=== PATIENT | female | born 1985 | race Two or more races ===

== ENCOUNTER → 2018-05-08 15:41 | Outpatient (CLI) | payer OTHER, SELFPAY ==
[2018-05-08 18:06] LABS: Chlamydia Trachomatis by PCR Negative (Negative); Neisserai gonorrhoeae by PCR Negative (Negative); Probe Check PASS; Sample Adequacy Control PASS; Specimen Processing Control PASS
--- OUTSIDE RECORDS SUMMARY | 2018-07-13 05:36 | XMS RPT_ITS ---
:1985 Author Organization OHIP Care Team Providers Name Role Phone Steph Fernández Attending Unavailable RAFA FUENTES Admitting Unavailable RAFA FUENTES Attending Unavailable RAFA FUENTES Primary Care Unavailable INES THOMAS Consulting Unavailable PROVIDER, UNKNOWN Consulting Unavailable MARTHA, INES Admitting Unavailable MARTHA, INES Attending Unavailable SLIGO, INES Primary Care Unavailable SLIGO, INES Consulting Unavailable PROVIDER, UNKNOWN Consulting Unavailable MARTHA, INES Admitting Unavailable SLIGO, INES Attending Unavailable SLIGO, INES Primary Care Unavailable SLIGO, INES Consulting Unavailable PROVIDER, UNKNOWN Consulting Unavailable SILVERIO MORRISON Attending Unavailable INES THOMAS Referring Unavailable SILVERIO MORRISON Referring Unavailable PROBLEMS PROBLEMS DATE TYPE CONDITION / CODE ATTENDING STATUS SOURCE 05/08/2018 Unknown Z11.3 - Encounter Fred Fernández for screening for [facility] infections with a Hospital predominantly [facility] sexual mode of transmission / Z11.3(ICD-10) 12/24/2017 Admitting Other pulmonary INES THOMAS Diagnosis embolism without [facility] / I2699(ICD-10) Repository 12/24/2017 Principle Other pulmonary MARTHA, INES Active Adam Pomleathane Diagnosis embolism without [facility] / I2699(ICD-10) Repository 06/25/2017 Active Other pulmonary NA Active Lott embolism with acute Clinic [facility] pulmonale / [place] I26.09(ICD-10) Repository PROCEDURES PROCEDURES No Procedure Records FoundRESULTS RESULTS CT/NG [facility] BY PCR Collected: 05/08/2018 Status: F Source: [place] 12:05 PM [facility] REPOSITORY TYPE CODE TESTS RESULT OUT OF RANGE REFERENCE UNITS LAB L8200.2100 Negative Normal Chlam Negative Trac PCR LAB L8200.2200 Negative Normal NG by Negative PCR Performed By: #### L8200.1999 #### [facility] [address] [place], [address] FACTOR V LEIDEN Collected: 12/24/2017 Status: F Source: [place] COSBY MUTATION [QUEST] 5:00 PM [facility] REPOSITORY TYPE CODE TESTS RESULT OUT OF REFERENCE UNITS RANGE LAB FACTOR V LEIDEN MUTATION [QUEST](LOINC) FACTOR V LEIDEN MUTATION [QUEST] Result Comment: _FACTOR V LEIDEN MUTATION_ FACTOR V (LEIDEN) MUTATION ANALYSIS Reported: 12/29/2017 18:18 Status=F TEST RESULT FLAG RANGE UNITS RESULT see below 12/29/17.rfl.COMPLETE.AMRR .04253-5 FACTOR V LEIDEN (R506Q) MUTATION NOT DETECTED INTERPRETATION see below 12/29/17.rfl.COMPLETE.AMRR .80928-3 This individual is negative (normal) for the Factor V Leiden (R506Q) mutation in the Factor V gene. Increased risk of thrombophilia can be caused by a variety of genetic and non-genetic factors not screened for by this assay. REVIEWER see below 12/29/17.rfl.COMPLETE.AIXA Jenkins. Keshia Holland, Ph.D., [facility] Director, Molecular Genetics SUPPLEMENTAL INFORMATION The Factor V Leiden (R506Q) mutation [[id number]:c. 1601G>A (p.R534Q)] in the Factor V gene is one of the most common causes of inherited thrombophilia. This mutation causes resistance to degradation of activated Factor V protein by activated Protein C (APC). The Factor V Leiden (R506Q) mutation is detected by amplification of the selected region of Factor V gene by polymerase chain reaction (PCR) and fluorescent probe hybridization to the targeted region, followed by melting curve analysis with a real time PCR system. Although rare, false positive or false negative results may occur. All results should be interpreted in context of clinical findings, relevant history, and other laboratory data. Health care providers, please contact your local [employer] genetic counselor or call [facility] [employer] ([phone]) for assistance with interpretation of these results. This test was developed and its analytical performance characteristics have been determined by [employer] [place], [place]. It has not been cleared or approved by the U.S. Food and Drug Administration. This assay has been validated pursuant to the CLIA regulations and is used for clinical purposes. Test Performed by [facility], [employer] [place], [address] [place] [address] Alex Whitt M.D., Ph.D., Director of Laboratories , CLIA [id number] Performed By: #### [id number] #### [facility],[address] [place] [address] THIN PREP (QU) HPV Collected: 12/24/2017 Status: F Source: [facility] DNA-HIGH RISK 10:57 AM [facility] REPOSITORY TYPE CODE TESTS RESULT OUT OF RANGE REFERENCE UNITS LAB THIN PREP (QU) HPV DNA-HIGH RISK(LOINC) THIN PREP (QU) HPV DNA-HIGH RISK Result Comment: _THIN PREP (QU) HPV DNA HIGH RISK_ THINPREP(R) PAP WITH HPV MRNA E6/E7 Reported: 01/01/2018 10:08 Status=F TEST RESULT FLAG RANGE UNITS THINPREP(R) PAP see below 01/01/18.1019.rfl.COMPLETE.[facility] .98328[facility] TESTS: TP W/HR HPV mRNA E6/E7 (1) CLINICAL HISTORY/INFORMATION: LMP DATE: N/P SOURCE: Cervix COMMENTS: PREVIOUS CYTO VALUES: Y NEGATIVE MENSTRUAL STATUS: NOT PROVIDED 1. SPECIMEN ADEQUACY: Satisfactory for Evaluation No endocervical/transformation zone component identified FINAL INTERPRETATION NEGATIVE FOR INTRAEPITHELIAL LESION OR MALIGNANCY COMMENTS: Fungal organisms present morphologically consistent with Ana species LMP not provided Screener ELECTRONIC SIGNATURE ON FILE JBM CT(ASCP) JBM CT(ASCP) The Pap is a screening test for cervical cancer. It is not a diagnostic test and is subject to false negative and false positive results. It is most reliable when a satisfactory sample, regularly obtained, is submitted with relevant clinical findings and history, and when the Pap result is evaluated along with historic and current clinical information. HPV MRNA E6/E7 Not Detected NOT DETECTED 01/01/18.1019.formerly [facility].AMRR .89235-7 This test was performed using the APTIMA(R) HPV Assay ([employer] This assay detects E6/E7 viral messenger RNA (mRNA) from 14 high-risk HPV types (16,18,31,33,35,39,45,51, 52,56,58,59,66,68). For additional information please refer to: http://education.[employer]/faq/MIF766i6 (This link is being provided for informational/ educational purposes only.) The analytical performance characteristics of this assay have been determined by [employer] [place], [place]. The modifications have not been cleared or approved by the FDA. This assay has been validated pursuant to the CLIA regulations and is used for clinical purposes. Test Performed by [facility], [facility], [address] [place] [address] Alex Whitt M.D., Ph.D., Director of Laboratories , CLIA [id number] Performed By: #### [id number] #### [place] [address] [address] CHEST (PE PROTOCOL) Observed: 08/21/2017 Status: F Source: [facility] 7:57 AM [place] [address] Patient: RESHMA BOJORQUEZ Phone#: : 1985 Age: 32 Gender: F Pt. Type: Out Account: [id number] Location: [facility] Ordering: [facility] Exam Date: 08/21/2017/7:34 Family Phys: Charge Code: [id number] Physician: Oneida Order #: [id number] DLP Dose#: PROCEDURE: CT CHEST WITH CONTRAST FOR PE COMPARISON: [facility], CT, CHEST PE W CON, 02/28/2017, 12:32. INDICATIONS: Pulmonary emboli TECHNIQUE: After obtaining the patient's consent, CT images were obtained with non-ionic intravenous contrast material. Multi-planar images were created to optimize visualization of vascular anatomy with MPR/MIPS and 3D imaging. All CT scans at this facility use dose modulation, iterative reconstruction, and/or weight based dosing when appropriate to reduce radiation dose to as low as reasonably achievable. IV CONTRAST: Omnipaque 350,62ml TOTAL DOSE: 3.20 CTDIvol(mGy) FINDINGS: VASCULATURE: Normal. No visible pulmonary arterial thrombus or attenuation. AORTA: Normal. No aneurysm or dissection. LUNGS: Normal. No visible pulmonary disease. JASON: Normal. No mass or adenopathy. MEDIASTINUM: Normal. No mass or adenopathy. CARDIAC: Normal. No enlargement, pericardial thickening, or significant calcification. PLEURA: Normal. No mass or effusion. CHEST WALL: Normal. No mass or axillary adenopathy. LIMITED ABDOMEN: Normal. Limited images of the upper abdomen are unremarkable. BONES: Normal. No bony lesion or fracture. OTHER: Negative. CONCLUSION: No acute disease. There has been resolution of previously identified bilateral lower lobe pulmonary artery emboli. [place] [id number] Patient: RESHMA BOJORQUEZ Phone#: : 1985 Age: 32 Gender: F Pt. Type: Out Account: [id number] Location: [facility] Ordering: [facility] Exam Date: 08/21/2017/7:34 Family Phys: Charge Code: [id number] Physician: Oneida Order #: [id number] DLP Dose#: Dictated by: Heather Gresham MD on 08/21/2017 at 8:27 Approved by: Heather Gresham MD on 08/21/2017 at 8:27 CT ABDOMEN/PELVIS W Observed: 07/28/2017 Status: F Source: [facility] 9:11 AM [facility] [address] [place] [address] Patient: RESHMA BOJORQUEZ Phone#: : 1985 Age: 32 Gender: F Pt. Type: Out Account: [id number] Location: 052 Ordering: [facility] Exam Date: 07/27/2017/10:32 Family Phys: Charge Code: [id number] Physician: Oneida Order #: [id number] DLP Dose#: PROCEDURE: CT ABDOMEN/PELVIS WITH CONTRAST COMPARISON: [facility], CT, ABDOMEN/PELVIS W CON, 10/11/2011, 17:12. INDICATIONS: Abdominal pain TECHNIQUE: After obtaining the patient's consent, CT images were created with non-ionic intravenous contrast material. All CT scans at this facility use dose modulation, iterative reconstruction, and/or weight based dosing when appropriate to reduce radiation dose to as low as reasonably achievable. IV CONTRAST: Omnipaque 350,80ml TOTAL DOSE: 11.2 CTDIvol(mGy) FINDINGS: LIVER: Normal. No enlargement, atrophy, abnormal density, or significant focal lesion. BILIARY: Normal. No visible dilatation or calcification. PANCREAS: Normal. No lesion, fluid collection, ductal dilatation, or atrophy. SPLEEN: Normal. No enlargement or focal lesion. KIDNEYS: Normal. No mass, obstruction, or calcification. ADRENALS: Normal. No mass or enlargement. AORTA/VASCULAR: Normal. No aneurysm or dissection. RETROPERITONEUM: Normal. No mass or adenopathy. BOWEL/MESENTERY: No bowel obstruction or dilatation. Appendix is unremarkable containing air. ABDOMINAL WALL: Normal. No mass or hernia. URINARY BLADDER: Normal. No visible focal wall thickening, lesion, or calculus. PELVIC NODES: Normal. No adenopathy. Continued Report - Page 2 of 2 Patient: RESHMA BOJORQUEZ Phone#: : 1985 Age: 32 Gender: F Pt. Type: Out Account: [id number] Location: 052 Ordering: [facility] Exam Date: 07/27/2017/10:32 Family Phys: Charge Code: [id number] Physician: Oneida Order #: [id number] DLP Dose#: PELVIC ORGANS: Uterus is present. There is a corpus luteal cyst in the left ovary. There is a small amount of free fluid in the pelvis, suggesting a recently ruptured cyst versus physiologic fluid. Follicles are present in both ovaries. BONES: Normal. No bony lesion or fracture. LUNG BASES: Normal. No visible pulmonary or pleural disease. OTHER: Negative. CONCLUSION: 1. No appreciable acute intra-abdominal or pelvic abnormality. 2. Small free fluid in the pelvis may be physiologic versus due to recently ruptured cyst. Dictated by: Reena Clark MD on 07/27/2017 at 16:54 Approved by: Reena Clark MD on 07/27/2017 at 16:54 CBC Collected: 07/27/2017 Status: F Source: [place] [place] 10:20 AM [facility] REPOSITORY TYPE CODE TESTS RESULT OUT OF RANGE REFERENCE UNITS LAB CBC(LOINC) CBC Result Comment: CBC-COMPLETE BLOOD COUNT LAB WBC(LOINC) 4.5 - 10.8 x 10EE3/UL WBC 7.3 LAB RBC(LOINC) 4.10 - x 10EE6/UL 5.30 RBC 4.63 LAB HEMOGLOBIN(LOINC) 12.0 - g/dl 16.0 HEMOGLOBIN 14.3 LAB HEMATOCRIT(LOINC) 34.0 - % 46.0 HEMATOCRIT 42.3 LAB MCV(LOINC) 80 - 99 fl MCV 91 LAB MCH(LOINC) 27 - 33 pg MCH 31 LAB MCHC(LOINC) 32 - 36 X10 3 MCHC 34 LAB RDW/CV(LOINC) 12.0 - % 15.6 RDW/CV 13.5 LAB PLATELET(LOINC) 150 - 450 x10EE3/UL PLATELET 265 LAB MPV(LOINC) 6.6 - 10.5 fl MPV 7.7 Result Comment: AUTOMATED DIFFERENTIAL LAB NEUT %(LOINC) 46.0 - 76.0 % NEUT % 56.9 LAB LYMPH %(LOINC) 20.0 - 45.0 % LYMPH % 30.5 LAB MONOS %(LOINC) 0.0 - 10.0 % MONOS % 6.4 LAB EO %(LOINC) 0.0 - 7.0 % EO % 4.8 LAB BASO %(LOINC) 0.0 - 2.0 % BASO % 1.4 LAB Lymph #(LOINC) 0.80 - 2.80 x10EE3/U L Lymph # 2.20 LAB Neut #(LOINC) 1.50 - 7.10 x10EE3/U L Neut # 4.20 LAB [place] #(LOINC) 0.20 - 1.00 x10EE3/U L [place] # 0.50 LAB EO #(LOINC) 0.00 - 0.50 x10EE3/U L EO # 0.40 LAB Baso #(LOINC) 0.00 - 0.10 x10EE3/U L Baso # 0.10 LAB MANUAL DIFF([facility]) MANUAL DIFF N/A LAB MORPHOLOGY([facility] ) MORPHOLOGY N/A Result Comment: {CD] Performed By: #### [id number] #### [facility],[address] [place], [place] [id number] [place] [address] CBC AND DIFF Collected: 06/25/2017 Status: F Source: [place] 11:09 AM [facility] REPOSITORY TYPE CODE TESTS RESULT OUT OF REFERENCE UNITS RANGE LAB WWBC 3.70-11.00 k/uL [place] WBC 8.02 LAB WRBC 3.90-5.20 m/uL [place] RBC 4.57 LAB WHGB 11.5-15.5 g/dL [place] Hemoglobin 14.1 LAB WHCT 36.0-46.0 % Gaye Hematocrit 42.9 LAB WMCV 80.0-100.0 fL [place] MCV 93.9 LAB WMCH 26.0-34.0 pg [place] MCH 30.9 LAB WMCHC 30.5-36.0 g/dL [place] MCHC 32.9 LAB WRDW 11.5-15.0 % [place] RDW 13.3 LAB WPLT 150-400 k/uL [place] Platelet Cnt 258 LAB WMPV 9.0-12.7 fL Low [place] MPV 8.8 Result Comment: Test performed at: [address] [place] [address]. LAB WNEUT % [place] Neut% 49.0 LAB WLYMP % [place] Lymp% 36.0 LAB WMONOC % Gaye [place]% 8.4 LAB WEOS % [place] Eos% 5.9 LAB WBASO % [place] Baso% 0.7 LAB WANEUT 1.45-7.5 k/uL 0 [place] Abs Neut 3.93 LAB WALYMP 1.00-4.0 k/uL 0 [place] Abs Lymp 2.89 LAB WAMONO <0.87 k/uL [place] Abs [place] 0.67 LAB WAEOS <0.46 k/uL High [place] Abs Eos 0.47 LAB WABASO <0.11 k/uL [place] Abs Baso 0.06 D DIMER Collected: 06/25/2017 Status: F Source: [place] 11:09 AM [facility] REPOSITORY TYPE CODE TESTS RESULT OUT OF REFERENCE UNITS RANGE LAB DDMER <500 ng/mL FEU D dimer <190 Result Comment: The D-dimer assay can be used to exclude pulmonary embolism (PE) and deep vein thrombosis (DVT) in conjunction with a low pre-test probability. For patients with a suspected DVT, a D-dimer level below 500 ng/mL FEU has a negative predictive value of 99.2%, a sensitivity of 98.9%, and a specificity of 36.1%. For patients with a suspected PE, a D -dimer level below 500 ng/mL FEU has a negative predictive value of 99.1%, a sensitivity of 97.8%, and a specificity of 41.7%. Performed By: #### DDMER #### [facility] [address] [place], [place] [address] PROGRESS Observed: 06/25/2017 Status: COMPLETED Source: [place] 10:50 AM [facility] REPOSITORY HNO ID: [id number] Author: Silverio Morrison Service: (none) Author Type: Physician Type: Progress Notes Filed: 06/26/2017 10:06 AM Note Text: Hematology and Medical Oncology PATIENT NAME: Reshma Bojorquez. CLINIC NO: [id number]. ATTENDING PHYSICIAN: Silverio Morrison MD. DATE OF SERVICE:06/25/2017. 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 My final recommendations will be communicated back to the requesting physician by way of shared Medical record or letter to requesting physician via US mail. 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 Patient has mild shortness of breath but no calf swelling or tenderness. She has been on control pill for years. she also has a strong family history of DVT and pulmonary emboli with multiple relatives from her father. The CT scan of chest on 02/28/2017 showed bilateral lower lobe pulmonary emboli with in the tissue vessel. There were no other abnormality of her heart along. Patient has completed 4 months of Xarelto with no bleeding complications. She denied chest pain, shortness of breath, leg swelling or tenderness. She has stopped control pills since last year. Patient has no unusual weight loss, change in bowel habits, no atypical or nonhealing skin ulcers/lesions. She denies any swelling or mass on her breasts. Patient does not smoke tobacco or drink alcohol. No history of drug use or addiction. No fever, chills or night sweats. She also has normal menses. She is here today to discuss whether she needs additional testing for hypercoagulability before stopping Xarelto. MEDICATIONS: Current Outpatient Prescriptions: rivaroxaban (XARELTO) 20 mg tablet Take 20 mg by mouth once daily. MULTIVITAMIN (MULTIPLE VITAMIN ORAL) Take 1 tablet by mouth once daily. No current facility-administered medications for this visit. . ALLERGIES:ALLERGIES No Known Allergies. PAST MEDICAL HISTORY:No past medical history on file.. PAST SURGICAL HISTORY: PAST SURGICAL HISTORY Procedure Laterality Date - KNEE ARTHROSCOP MENISCUS REPAIR MED/LAT Left . FAMILY HISTORY: FAMILY HISTORY Problem Relation Age of Onset - Other [OTHER] Mother thyroid disease - Skin Cancer Paternal Grandmother - Diabetes Paternal Grandmother - Heart disease Paternal Grandmother - Other [OTHER] Paternal Grandmother PE - Skin Cancer Paternal Grandfather . SOCIAL HISTORY:Social History Marital status: Unknown Spouse name: Years of education: Number of children: Social History Main Topics Smoking status: Never Smoker Smokeless status: Never Used Alcohol use: Yes Comment: occassionally Drug use: No REVIEW OF SYSTEMS: CONSTITUTIONAL: No fevers, chills, nightsweats, unintended weight loss HEENT: Denies frequent or severe heaches, nasal congestion/sinus symptoms, problematic allergy problems. EYES: No diplopia or blurry vision. CARDIOVASCULAR: No chest pain, dyspnea, palpitations, orthopnea, PND, ankle edema. PULM: No dyspnea, unexplained cough. GI: No dysphagia/odynophagia, problematic reflux, constipation, diarrhea, changes in stool habits, hematochezia, melena. : No new urinary complaints, including dysuria, gross hematuria or pyuria. NEURO: No new balance problems, peripheral weakness/paresthesias or numbness of concern. MUSC-SKEL: No new joint pain, swelling, or erythema. PSY: No concerns regarding depression, anxiety or panic. INTEGUMENTARY: No new skin changes (rash, new or changing mole, new growth) PHYSICAL EXAMINATION: 32-year-old well-nourished well-developed female in no distress BP 120/75 Pulse 78 Temp 98.4 Ht 5' 1.5[verified by Jeimy De Los Santos RN[ (1.56m) Wt 136 lb (61.7kg) BMI 25.28 kg/(m2). oxygen saturation 100% HEENT: Head is normocephalic, atraumatic. Sclerae white, conjunctivae pink. PEERL. EOMs are intact. Oropharynx is benign. LYMPHATICS: There is no palpable adenopathy in the neck, supraclavicular region, axillae, or groin. LUNGS: Lungs are clear to percussion and auscultation. HEART: Heart is normal without murmurs, gallops, or rubs. ABDOMEN: Soft and nontender without organomegaly. No masses can be palpated. EXTREMITIES: Are without edema. swelling or tenderness. NEUROLOGIC: Exam is physiologic LABORATORY DATA: Component Latest Ref Rng AND Units 06/25/2017 WBC, Gaye 3.70 - 11.00 k/uL 8.02 RBC, [place] 3.90 - 5.20 m/uL 4.57 Hemoglobin, [place] 11.5 - 15.5 g/dL 14.1 Hematocrit, Gaye 36.0 - 46.0 % 42.9 MCV, [place] 80.0 - 100.0 fL 93.9 MCH, Gaye 26.0 - 34.0 pg 30.9 MCHC, [place] 30.5 - 36.0 g/dL 32.9 RDW, [place] 11.5 - 15.0 % 13.3 Platelet Cnt, [place] 150 - 400 k/uL 258 MPV, [place] 9.0 - 12.7 fL 8.8 (L) Neut%, Gaye % 49.0 Lymp%, [place] % 36.0 [place]%, Gaye % 8.4 Eos%, [place] % 5.9 Baso%, [place] % 0.7 Abs Neut, [place] 1.45 - 7.50 k/uL 3.93 Abs Lymp, Gaye 1.00 - 4.00 k/uL 2.89 Abs [place], Gaye <0.87 k/uL 0.67 Abs Eos, [place] <0.46 k/uL 0.47 (H) Abs Baso, Gaye <0.11 k/uL 0.06 Component Latest Ref Rng AND Units 06/25/2017 d Dimer <500 ng/mL FEU <190 ASSESSMENT: 32-year-old female with 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 Family history of thromboembolism. All symptoms of pulmonary emboli has resolved after 4 months of Xarelto PLAN: - repeat CBC and d-dimer today. If her results are normal, then stop Xarelto - control pills are now contraindicated. - She will need to be on LMWH in the future once she become AND and throughout . 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 - We also discussed indication for hypercoagulable panel at this time. Since this is her first episode, most common reason for thromboembolism with family history could be a factor V Leiden or prothrombin mutation. The present of these mutations will not change her treatment. She does not need long-term anticoagulation therapy for thromboembolism related to control pill. Silverio Morrison MD. ELECTRONICALLY SIGNED CNOVSP Observed: 06/25/2017 Status: COMPLETED Source: [place] 10:10 AM [facility] REPOSITORY Visit (SP) Office (BILL) RESHMA BOJORQUEZ ([id number]) 1985 F Date Time Provider Department 06/25/17 10:10 AM SILVERIO MORRISON During your visit today, we recorded the following information about you: Temperature Pulse Blood pressure Weight 98.4 degrees 78/minute 120/75 61.7 kg Height 1.562 m Latricia Blancas LPN, CRYSTAL 06/25/2017 10:44 AM Signed New pt, discuss : HX: bilateral PE CRYSTAL Valerio MD 06/25/2017 10:46 AM Signed Stop Xarelto if labs ANDamp; d dimer are normal. No control pills ANDamp; will need LMWH if in the future. Silverio Morrison MD 06/26/2017 10:06 AM Signed Hematology and Medical Oncology PATIENT NAME: Reshma Bojorquez. CLINIC NO: [id number]. ATTENDING PHYSICIAN: Silverio Morrison MD. DATE OF SERVICE:06/25/2017. 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 My final recommendations will be communicated back to the requesting physician by way of shared Medical record or letter to requesting physician via US mail. 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 Patient has mild shortness of breath but no calf swelling or tenderness. She has been on control pill for years. she also has a strong family history of DVT and pulmonary emboli with multiple relatives from her father. The CT scan of chest on 02/28/2017 showed bilateral lower lobe pulmonary emboli with in the tissue vessel. There were no other abnormality of her heart along. Patient has completed 4 months of Xarelto with no bleeding complications. She denied chest pain, shortness of breath, leg swelling or tenderness. She has stopped control pills since last year. Patient has no unusual weight loss, change in bowel habits, no atypical or nonhealing skin ulcers/lesions. She denies any swelling or mass on her breasts. Patient does not smoke tobacco or drink alcohol. No history of drug use or addiction. No fever, chills or night sweats. She also has normal menses. She is here today to discuss whether she needs additional testing for hypercoagulability before stopping Xarelto. MEDICATIONS: Current Outpatient Prescriptions: rivaroxaban (XARELTO) 20 mg tablet Take 20 mg by mouth once daily. MULTIVITAMIN (MULTIPLE VITAMIN ORAL) Take 1 tablet by mouth once daily. No current facility-administered medications for this visit. . ALLERGIES:ALLERGIES No Known Allergies. PAST MEDICAL HISTORY:No past medical history on file.. PAST SURGICAL HISTORY: PAST SURGICAL HISTORY Procedure Laterality Date - KNEE ARTHROSCOP MENISCUS REPAIR MED/LAT Left . FAMILY HISTORY: FAMILY HISTORY Problem Relation Age of Onset - Other [OTHER] Mother thyroid disease - Skin Cancer Paternal Grandmother - Diabetes Paternal Grandmother - Heart disease Paternal Grandmother - Other [OTHER] Paternal Grandmother PE - Skin Cancer Paternal Grandfather . SOCIAL HISTORY:Social History Marital status: Unknown Spouse name: Years of education: Number of children: Social History Main Topics Smoking status: Never Smoker Smokeless status: Never Used Alcohol use: Yes Comment: occassionally Drug use: No REVIEW OF SYSTEMS: CONSTITUTIONAL: No fevers, chills, nightsweats, unintended weight loss HEENT: Denies frequent or severe heaches, nasal congestion/sinus symptoms, problematic allergy problems. EYES: No diplopia or blurry vision. CARDIOVASCULAR: No chest pain, dyspnea, palpitations, orthopnea, PND, ankle edema. PULM: No dyspnea, unexplained cough. GI: No dysphagia/odynophagia, problematic reflux, constipation, diarrhea, changes in stool habits, hematochezia, melena. : No new urinary complaints, including dysuria, gross hematuria or pyuria. NEURO: No new balance problems, peripheral weakness/paresthesias or numbness of concern. MUSC-SKEL: No new joint pain, swelling, or erythema. PSY: No concerns regarding depression, anxiety or panic. INTEGUMENTARY: No new skin changes (rash, new or changing mole, new growth) PHYSICAL EXAMINATION: 32-year-old well-nourished well-developed female in no distress BP 120/75 Pulse 78 Temp 98.4 Ht 5' 1.5ANDquot;[verified by Jeimy De Los Santos RN[ (1.56m) Wt 136 lb (61.7kg) BMI 25.28 kg/(m2). oxygen saturation 100% HEENT: Head is normocephalic, atraumatic. Sclerae white, conjunctivae pink. PEERL. EOMs are intact. Oropharynx is benign. LYMPHATICS: There is no palpable adenopathy in the neck, supraclavicular region, axillae, or groin. LUNGS: Lungs are clear to percussion and auscultation. HEART: Heart is normal without murmurs, gallops, or rubs. ABDOMEN: Soft and nontender without organomegaly. No masses can be palpated. EXTREMITIES: Are without edema. swelling or tenderness. NEUROLOGIC: Exam is physiologic LABORATORY DATA: Component Latest Ref Rng ANDamp; Units 06/25/2017 WBC, [place] 3.70 - 11.00 k/uL 8.02 RBC, [place] 3.90 - 5.20 m/uL 4.57 Hemoglobin, [place] 11.5 - 15.5 g/dL 14.1 Hematocrit, [place] 36.0 - 46.0 % 42.9 MCV, [place] 80.0 - 100.0 fL 93.9 MCH, [place] 26.0 - 34.0 pg 30.9 MCHC, [place] 30.5 - 36.0 g/dL 32.9 RDW, [place] 11.5 - 15.0 % 13.3 Platelet Cnt, Gaye 150 - 400 k/uL 258 MPV, [place] 9.0 - 12.7 fL 8.8 (L) Neut%, [place] % 49.0 Lymp%, Gaye % 36.0 [place]%, Gaye % 8.4 Eos%, Gaye % 5.9 Baso%, [place] % 0.7 Abs Neut, [place] 1.45 - 7.50 k/uL 3.93 Abs Lymp, [place] 1.00 - 4.00 k/uL 2.89 Abs [place], [place] ANDlt;0.87 k/uL 0.67 Abs Eos, [place] ANDlt;0.46 k/uL 0.47 (H) Abs Baso, [place] ANDlt;0.11 k/uL 0.06 Component Latest Ref Rng ANDamp; Units 06/25/2017 d Dimer ANDlt;500 ng/mL FEU ANDlt;190 ASSESSMENT: 32-year-old female with 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 Family history of thromboembolism. All symptoms of pulmonary emboli has resolved after 4 months of Xarelto PLAN: - repeat CBC and d-dimer today. If her results are normal, then stop Xarelto - control pills are now contraindicated. - She will need to be on LMWH in the future once she become ANDamp; and throughout . 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 - We also discussed indication for hypercoagulable panel at this time. Since this is her first episode, most common reason for thromboembolism with family history could be a factor V Leiden or prothrombin mutation. The present of these mutations will not change her treatment. She does not need long-term anticoagulation therapy for thromboembolism related to control pill. Silverio Morrison MD. ELECTRONICALLY SIGNED Referring Provider: INES THOMAS [[id number]] Allergies As of Date: 06/25/2017 (No Known Allergies) Date Reviewed: 06/25/2017 Reviewed by: Latricia Blancas LPN - Fully Assessed Reason for Visit: New Patient [172] Primary Visit Diagnosis:Other pulmonary embolism with acute cor pulmonale, unspecified chronicity (HCC) [I26.09] Order(s):GAYE CBC AND DIFF [SQWCBCDF] Order #: [id number] FUTURE D-DIMER [SQDDMER] Order #: [id number] FUTURE Level of Service: NEW PATIENT VISIT LEVEL 4 [[id number]] Disposition: Return if symptoms worsen or fail to improve. Follow-up and Disposition History Recorded Prescriptions as of 06/25/2017 Sig: RIVAROXABAN 20 MG TABLET Take 20 mg by mouth once giuliana* MULTIPLE VITAMIN ORAL Take 1 tablet by mouth once d* Problem List As Of Date: 06/25/2017 (None) Other instructions from your clinician: Stop Xarelto if labs AND d dimer are normal. No control pills AND will need LMWH if in the future. Visit Notes: >> Latricia Blancas LPN FriJun 25, 2017 10:23 AM Status: Signed New pt, discuss : HX: bilateral PE Latricia Blancas LPN Encounter Status:Closed by SILVERIO MORRISON MD on 06/26/17 ALLERGIES ALLERGIES DATE TYPE / CODE NAME / CODE REACTION SEVERITY SOURCE Miscellaneous No Known Drug Moderate Adam Pomerene Allergy/[id number](S Allergies (Severity [facility]) Modifier) Hospital (Qualifier Repository Value) Drug NO KNOWN [place] Class/[id number](O ALLERGIES [facility]) [place] Repository ENCOUNTERS ENCOUNTERS ADMIT/DISCHARGE ACCOUNT ADMITTING ENCOUNTER LOCATION SOURCE NUMBER CLASS 05/08/2018 [id number] Ambulatory Gaye Gaye [facility] ing:[facility]SPEC Repository 12/24/2017/12/25/19 [id number] SLIG[place], Ambulatory [address] Repository 08/21/2017/08/22/19 [id number] [place], Ambulatory [address] Repository 07/27/2017/07/28/19 [id number] ALFREDO, Ambulatory [address] Repository 06/25/2017/06/26/19 [id number] Ambulatory [address] Repository 06/25/2017/06/27/19 [id number] Ambulatory [address] Repository PAYERS PAYERS ENCOUNTER GUARANTOR PAYER SUBSCRIBER SOURCE 05/08/2018 RESHMA Primary RESHMA [place] al[place] [id number] TR [facility] [address] Number: [id number] [id number]: . [id number] Repository (HP) Date:[id number] [address] [place] [id number]: 05/08/2018 Secondary NOT GIVENUNK [place] Insurance:SELF PAY [facility] Number: Effective Repository Date:2018-05-08 12/24/2017 RESHMA Primary RESHMA S Adam Pomerene MILLERDOB: Insurance:AULTCARE MILLERDOB: [facility] W EMPLOYEE [id number] [facility] Repository [address], Number[facility] [address]Lue: [id number] Date:Plan Name:A4 () 08/21/2017 RESHMA EKATERINA Primary RESHMA S Adam Pomerene MILLERDOB: Insurance:AULTCARE MILLERDOB: [facility] N EMPLOYEE [id number] [facility] Repository [address], Number: LAW [facility] [id number]: [id number] Date:Plan Name:A2 () 07/27/2017 RESHMA TOBAR [facility] RESHMA [place]: Insurance:[facility]: [facility] N EMPLOYEE [id number] [facility], Number: [facility] [address]Wdb: [id number] Date:Plan Name:A2 ()
== END ==
PROVIDERS: Visit Provider Obstetrics & Gynecology
DX: Z11.3 Encounter for screening for infections with a predominantly sexual mode of transmission (principal)
CPT/HCPCS: 87491; 87591